=== PATIENT | female | born 1955 | race African-American/Black ===

== ENCOUNTER 2019-11-05 22:45 | Inpatient (IN) | payer MEDICARE, OTHER ==
[~2019-11-05] VITALS: Ht 160 cm; Wt 54.5 kg
--- NOTE | 2019-11-05 23:15 | NUR ---
SPOKE WITH PT'S NIECE, MOMO HIGH. PHONE NUMBER [phone].
--- NOTE | 2019-11-05 23:25 | NUR ---
SPOKE TO TIM GONZALES, HOMEOWNER OF [employer]. UNABLE TO GET FULL HX ON PT. WHEN THE FACILITY RECEIVED THE PATIENT "A COUPLE OF WEEKS AGO" PER Carlos GONZALES, SHE DID NOT RECEIVE ANY MEDICAL INFORMATION OF THE PATIENT.
[2019-11-05 23:43] LABS: BASOPHILS % 0.3 % (0.0-1.0); EOSINOPHILS # (AUTO) 0.1 (0.0-0.4); EOSINOPHILS % 2.2 % (0.0-6.0); HEMATOCRIT 31.6 % (34.2-44.1); HEMOGLOBIN 8.9 g/dL (12.0-16.0); LYMPHOCYTES # (AUTO) 1.1 (1.0-3.2); LYMPHOCYTES % 29.6 % (18.0-39.1); MEAN CORPUSCULAR HEMOGLOBIN 24.3 pg (28-32); MEAN CORPUSCULAR HGB CONC 28.2 g/dL (31-35); MEAN CORPUSCULAR VOLUME 86.1 fL (81-99); MONOCYTES # (AUTO) 0.4 (0.2-0.8); MONOCYTES % 11.5 % (4.4-11.3); NEUTROPHILS % 56.4 % (38.7-80.0); PLATELET COUNT 240 x10e3/uL (140-360); RED BLOOD COUNT 3.67 x10e6/uL (3.6-5.1); RED CELL DISTRIBUTION WIDTH 15.8 % (11.7-14.4)
[2019-11-05] MEDS ORDERED: HALOPERIDOL LACTATE 5 MG/ML VIAL IM ONE (23:45)
--- NOTE | 2019-11-05 23:45 | Emergency Department Note ---
History of Present Illnes History of Present Illness Chief Complaint: Neurological History of Present Illness This is a 64 year old female A&OX2 DISORIENTED TO TIME; PRESENTS TO THE ER VIA [facility] FROM [facility] C/O HALLUCINATIONS AND CP; PER FACILITY, PT HAD BEEN TRYING TO PULL OUT KATE CATHETER AND "ACTING DIFFERENT THAN USUAL"; HX OF DEMENTIA AND ALZHEIMER'S; PER DAUGHTER, PT HAD "SOME KIDNEY SX"; NURSE CATHY SPOKE WITH PT'S CAREGIVER AT [facility] IN AND REPORTED SHE HAS BEEN AWAITING A PSYCH EVALUATION WELL DUE TO HER DEMENTIA AND BEHAVIOR. 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 Any updates have been documented here. Past Medical History Recent Fever: No Clinical Suspicion of Infectio: No New/Unexplained Change in Ment: Yes Past Medical History: Hypertension, Chronic Kidney Disease Other Medical History: DEMENTIA ALZHEIMER'S DISEASE RT KIDNEY DISFUNCTION Past Surgical History: Other Surgery: "KIDNEY SX" UNABLE TO OBTAIN FULL HISTORY Social History Smoking Cessation: Never Smoker Alcohol Use: None Any Illegal Drug Use: No Other Last Tetanus: UNK Review of Systems ROS Narrative Unable to obtain ROS: Unable to obtain due to, altered mental status (PT HAS ALZ DEMENTIA) Review of Systems Review of other systems All other systems reviewed and negative. Physical Exam Related Data Allergies: Coded Allergies: No Known Allergies (Unverified , 11/05/19) Triage Vital Signs Vital Signs Date Time Temp Pulse Resp B/P (MAP) Pulse Ox O2 Delivery O2 Flow Rate FiO2 11/05/19 22:45 98.6 82 18 110/64 100 Vital signs reviewed: Yes Physical Exam CONSTITUTIONAL Constitutional: well-developed, well-nourished HENT HENT: normocephalic, atraumatic, oropharynx clear/moist, nose normal HENT L/R: left ext ear normal, right ext ear normal EYES Eyes: PERRL, conjunctivae normal NECK Neck: ROM normal PULMONARY Pulmonary: effort normal, breath sounds normal CARDIOVASCULAR Cardiovascular: regular rhythm, heart sounds normal, capillary refill normal, normal rate GASTROINTESTINAL Abdominal: soft, nontender, bowel sounds normal GENITOURINARY Genitourinary: other (PT HAS LEFT NEPHROSTOMY TUNE IN PLACE) SKIN Skin: warm, dry MUSCULOSKELETAL Musculoskeletal: ROM normal NEUROLOGICAL Neurological: alert, no gross motor or sensory deficits, other (DISORIENTED TO TIME AND SITUATION) PSYCHOLOGICAL Psychological: other (PT WITH DEMENITA, OCCAISIONALLY YELLS OUT) Results Laboratory Laboratory Laboratory Tests Test 11/06/19 03:08 11/05/19 23:21 Urine Color Yellow (YELLOW) Urine Clarity Cloudy (CLEAR) Urine pH 7 (5 - 7) Urine Specific Williams 1.020 (1.010-1.025) Urine Protein 2+ (NEGATIVE) Urine Glucose (UA) Negative (NEGATIVE) Urine Ketones Negative (NEGATIVE) Urine Blood 2+ (NEGATIVE) Urine Nitrite Positive (NEGATIVE) Urine Bilirubin Negative (NEGATIVE) Urine Urobilinogen 0.2 mg/dL (0.2 - 1) Urine Leukocyte Esterase 1+ (NEGATIVE) Urine RBC >50 /HPF (0-5) Urine WBC >50 /HPF (0-5) Urine Epithelial Cells Few /LPF (NONE) Urine Bacteria Many /HPF (NONE) Urine Opiates Screen Positive (NEGATIVE) Urine Methadone Screen Negative (NEGATIVE) Urine Barbiturates Screen Negative (NEGATIVE) Urine Phencyclidine Screen Negative (NEGATIVE) Urine Amphetamines Screen Negative (NEGATIVE) Urine Methamphetamines Screen Negative (NEGATIVE) Urine Benzodiazepines Screen Positive (NEGATIVE) Urine Cocaine Screen Negative (NEGATIVE) Urine Cannabinoids Screen Negative (NEGATIVE) White Blood Count 3.58 x10e3/uL (4.8-10.8) Red Blood Count 3.67 x10e6/uL (3.6-5.1) Hemoglobin 8.9 g/dL (12.0-16.0) Hematocrit 31.6 % (34.2-44.1) Mean Corpuscular Volume 86.1 fL (81-99) Mean Corpuscular Hemoglobin 24.3 pg (28-32) Mean Corpuscular Hemoglobin Concent 28.2 g/dL (31-35) Red Cell Distribution Width 15.8 % (11.7-14.4) Platelet Count 240 x10e3/uL (140-360) Neutrophils (%) (Auto) 56.4 % (38.7-80.0) Lymphocytes (%) (Auto) 29.6 % (18.0-39.1) Monocytes (%) (Auto) 11.5 % (4.4-11.3) Eosinophils (%) (Auto) 2.2 % (0.0-6.0) Basophils (%) (Auto) 0.3 % (0.0-1.0) Neutrophils # (Auto) 2.0 (2.1-6.9) Lymphocytes # (Auto) 1.1 (1.0-3.2) Monocytes # (Auto) 0.4 (0.2-0.8) Eosinophils # (Auto) 0.1 (0.0-0.4) Basophils # (Auto) 0.0 (0.0-0.1) Absolute Immature Granulocyte (auto 0 x10e3/uL (0-0.1) Sodium Level 145 mmol/L (136-145) Potassium Level 4.1 mmol/L (3.5-5.1) Chloride Level 113 mmol/L (98-107) Carbon Dioxide Level 21 mmol/L (22-29) Anion Gap 15.1 mmol/L (8-16) Blood Urea Nitrogen 59 mg/dL (7-26) Creatinine 3.25 mg/dL (0.57-1.11) Estimat Glomerular Filtration Rate 14 ML/MIN (60-) BUN/Creatinine Ratio 18 (6-25) Glucose Level 104 mg/dL (74-118) Lactic Acid Level 0.8 mmol/L (0.5-2.0) Calcium Level 10.0 mg/dL (8.4-10.2) Total Bilirubin 0.2 mg/dL (0.2-1.2) Aspartate Amino Transf (AST/SGOT) 30 IU/L (5-34) Alanine Aminotransferase (ALT/SGPT) 7 IU/L (0-55) Alkaline Phosphatase 39 IU/L (40-150) Ammonia 44 UG/DL (31-123) Creatine Kinase 433 IU/L (29-168) Creatine Kinase MB 4.00 ng/mL (0-5.0) Troponin I 0.008 ng/mL (0-0.300) Total Protein 7.9 g/dL (6.5-8.1) Albumin 4.0 g/dL (3.5-5.0) Globulin 3.9 g/dL (2.3-3.5) Albumin/Globulin Ratio 1.0 (0.8-2.0) Ethyl Alcohol Level < 10.0 mg/dL (0.0-10.0) Laboratory Tests Test 11/05/19 23:21 Lab results reviewed: Yes Imaging Imaging results reviewed: Yes Impressions Procedure: CT/CT BRAIN WO Exam Date: 11/05/19 Exam Time: 5 REPORT STATUS: Signed EXAMINATION: Head CT without contrast. HISTORY:Altered mental status, hallucination. COMPARISON:None. TECHNIQUE: Multidetector axial images were obtained from the foramen magnum to the vertex without contrast. The images were reconstructed using brain and bone algorithms. Thin section brain images were reformatted into coronal and sagittal planes. Dose modulation, iterative reconstruction, and/or weight based adjustment of the mA/kV was utilized to reduce the radiation dose to as low as reasonably achievable. Intravenous contrast: None IMAGE QUALITY: Acceptable. FINDINGS: Skull/scalp: No lytic or blastic. lesions. No surgical changes. Parenchyma: Nonspecific few, scattered supratentorial white matter hypodensity are likely related to small vessel ischemic changes. No acute hemorrhage, mass or acute major vascular territorial infarct. Arteries: No density suggestive of thrombosis. Atherosclerotic calcification in bilateral carotid siphon. Dural sinuses: No abnormal density suggestive of thrombosis. Ventricles: No hydrocephalus or displacement. Extra-axial spaces: No abnormal density. Brain volume: Normal for age. Craniocervical junction: No mass, Chiari malformation, or basilar invagination. Sella: No mass. Paranasal/mastoid sinuses: Imaged portions unremarkable. IMPRESSION: No acute intracranial abnormality. Mild supratentorial white matter microvascular ischemic changes. Signed by: Dr. Tamy Wood M.D. on 11/06/2019 12:45 AM Dictated By: TAMY WOOD MD Transcribed By: TROY on 11/[birth year]/1944 COPY TO: MISTY LUJAN MD~ Procedure: DX/CHEST SINGLE (PORTABLE) Exam Date: 11/05/19 Exam Time: 2354 REPORT STATUS: Signed EXAMINATION: CHEST SINGLE (PORTABLE) COMPARISON: None INDICATION: ^CONFUSED ^Y DISCUSSION: Frontal view of the chest obtained at 0021 hours. HEART AND MEDIASTINUM: The cardiomediastinal silhouette is unremarkable. LINES: None. LUNGS/PLEURA: The lungs are well-inflated. Mild eventration of the right diaphragm. No pneumonia or pulmonary edema. No pleural effusion or pneumothorax. BONES AND SOFT TISSUES: No focal osseous lesion. Surgical clips in the right upper quadrant. The soft tissues are normal. IMPRESSION: No acute cardiopulmonary disease. Signed by: Dr. Jadon Means MD on 11/06/2019 12:39 AM Dictated By: JADON MEANS MD Transcribed By: TROY on 11/06/1938 Critical Care Time Subsequent provider I assumed direction of critical care for this patient from another provider of my specialty. Assessment & Plan Assessment & Plan Final Impression: (1) URINARY TRACT INFECTION, SITE NOT SPECIFIED (2) DEMENTIA IN OTH DISEASES CLASSD ELSWHR W BEHAVIORAL DISTURB (3) ALZHEIMER'S DISEASE, UNSPECIFIED Assessment & Plan PT WITH H/O ALZ DEMENTIA WITH REPORTED CHEST PAIN AT 7 AM THIS MORNING AND REPORTED MORE CONFUSED THAN NORMAL CBC, CMP, UA, CARDIAC ENZYMES, CXR, CT BRAIN ORDERED TO EVAL FOR MYOCARDIAL INFARCTION, ELECTROLYTE ABNORMALITY, UTI, PNEUMONIA, INTRACRANIAL ABNORMALITY 2348 PT NOW COMBATIVE, HALOPERIDOL 2 MG IM ORDERED PT HAS UTI LEFT KIDNEY, UA RESULTS ARE FROM LEFT NEPHROSTOMY PT STARTED ON CEFEPIME I SPOKE WITH DR JONES, ADMIT TO INPATIENT Depart Disposition: ADMITTED Last Vital Signs Date Time Temp Pulse Resp B/P (MAP) Pulse Ox O2 Delivery O2 Flow Rate FiO2 11/05/19 22:45 98.6 82 18 110/64 100 MISTY LUJAN MD Nov 05, 2019 23:45
--- NOTE | 2019-11-05 23:45 | NUR ---
Unable to perform EKG at this time. Patient is yelling and refusing EKG at this time. Patient digging her nails into staff. notified.
[2019-11-06] VITALS (7 sets, daily range): BP systolic 129–144; BP diastolic 70–80
[2019-11-06] LABS: ANION GAP 15.1 mmol/L (8-16); CREATININE, SERUM 3.25 mg/dL (0.57-1.11); POTASSIUM 4.1 mmol/L (3.5-5.1)
--- NOTE | 2019-11-06 00:42 | Diagnostic Imaging Report ---
EXAMINATION: CHEST SINGLE (PORTABLE) COMPARISON: None INDICATION: ^CONFUSED ^Y DISCUSSION: Frontal view of the chest obtained at 0021 hours. HEART AND MEDIASTINUM: The cardiomediastinal silhouette is unremarkable. LINES: None. LUNGS/PLEURA: The lungs are well-inflated. Mild eventration of the right diaphragm. No pneumonia or pulmonary edema. No pleural effusion or pneumothorax. BONES AND SOFT TISSUES: No focal osseous lesion. Surgical clips in the right upper quadrant. The soft tissues are normal. IMPRESSION: No acute cardiopulmonary disease. Signed by: Dr. Bryant Means MD on 11/06/2019 12:39 AM
--- NOTE | 2019-11-06 00:49 | Diagnostic Imaging Report ---
EXAMINATION: Head CT without contrast. HISTORY:Altered mental status, hallucination. COMPARISON:None. TECHNIQUE: Multidetector axial images were obtained from the foramen magnum to the vertex without contrast. The images were reconstructed using brain and bone algorithms. Thin section brain images were reformatted into coronal and sagittal planes. Dose modulation, iterative reconstruction, and/or weight based adjustment of the mA/kV was utilized to reduce the radiation dose to as low as reasonably achievable. Intravenous contrast: None IMAGE QUALITY: Acceptable. FINDINGS: Skull/scalp: No lytic or blastic. lesions. No surgical changes. Parenchyma: Nonspecific few, scattered supratentorial white matter hypodensity are likely related to small vessel ischemic changes. No acute hemorrhage, mass or acute major vascular territorial infarct. Arteries: No density suggestive of thrombosis. Atherosclerotic calcification in bilateral carotid siphon. Dural sinuses: No abnormal density suggestive of thrombosis. Ventricles: No hydrocephalus or displacement. Extra-axial spaces: No abnormal density. Brain volume: Normal for age. Craniocervical junction: No mass, Chiari malformation, or basilar invagination. Sella: No mass. Paranasal/mastoid sinuses: Imaged portions unremarkable. IMPRESSION: No acute intracranial abnormality. Mild supratentorial white matter microvascular ischemic changes. Signed by: Dr. Tamy Wood M.D. on 11/06/2019 12:45 AM
[2019-11-06 03:26] LABS: BENZODIAZEPINES SCREEN,URINE POSITIVE (NEGATIVE); CLARITY,URINE CLOUDY (CLEAR); COLOR,URINE YELLOW (YELLOW); KETONES,URINE NEGATIVE (NEGATIVE); LEUKOCYTE ESTERASE ,URINE 1+ (NEGATIVE); NITRITE,URINE POSITIVE (NEGATIVE); PROTEIN,URINE DIPSTICK 2+ (NEGATIVE)
[2019-11-06 03:27] LABS: AMPHETAMINES SCREEN,URINE NEGATIVE (NEGATIVE); BILIRUBIN,URINE NEGATIVE (NEGATIVE); PHENCYCLIDINE SCREEN,URINE NEGATIVE (NEGATIVE); URINE UROBILINOGEN 0.2 mg/dL (0.2 - 1)
[2019-11-06 03:33] LABS: BACTERIA,URINE MANY /HPF; EPITHELIAL CELLS,URINE FEW /LPF; RBC,URINE >50 /HPF (0-5); WBC,URINE (MAN) >50 /HPF (0-5)
[2019-11-06] MEDS ORDERED: ONDANSETRON HCL INJ 2MG/ML 2ML 2 MG/ML VIAL IV PRN (04:00)
[2019-11-06] MEDS: CEFEPIME 2 GM/NS 0.9% 100 ML 100 ML IV SCH ×2 (05:09→06:00)
--- NOTE | 2019-11-06 09:05 | NUR ---
RECEIVED PATIENT FROM ER. PATIENT AAOX1, CONFUSED. 1:1 SITTER AT BEDSIDE. COMPLETED ADMISSION HISTORY BY CALLING PATIENT'S COUSIN/POA. IV LINE TO RIGHT ANTECUBITAL PATENT. CALL LIGHT WITHIN REACH. BED IN THE LOWEST POSITION. BED ALARM ON.
[2019-11-06] MEDS ORDERED: LORAZEPAM0.5 GM PO (09:50)
[2019-11-06] MEDS ORDERED: CRESTOR10 MG PO (09:50)
[2019-11-06] MEDS ORDERED: TYLENOL WITH C1 EACH PO (09:50)
[2019-11-06] MEDS ORDERED: SEROQUEL25 MG PO (09:50)
[2019-11-06] MEDS ORDERED: TEMAZEPAM15 MG PO (09:50)
[2019-11-06] MEDS: SODIUM CHLORIDE 0.9% 1000ML 1,000 ML IV SCH ×2 (10:07→19:30)
[2019-11-06] MEDS: CEFTRIAXONE SOD 1 GM/NS 50 ML 50 ML IV SCH (10:07)
[2019-11-06] MEDS ORDERED: ACETAMINOPHEN/CODEINE 300MG - 30MG TAB PO PRN (12:30)
[2019-11-06] MEDS ORDERED: ACETAMINOPHEN 325 MG TAB PO PRN (12:30)
[2019-11-06] MEDS ORDERED: HYDRALAZINE HCL 20 MG/ML VIAL IV PRN (12:30)
[2019-11-06] MEDS ORDERED: LORAZEPAM 0.5 MG TAB PO PRN (12:30)
--- NOTE | 2019-11-06 13:27 | Diagnostic Imaging Report ---
EXAM: Renal Ultrasound INDICATION: Acute kidney injury COMPARISON: None TECHNIQUE: Transverse and longitudinal images of the kidneys and bladder were obtained. FINDINGS: Right Kidney: Length: 9.1 cm Appearance: Normal echogenicity. Collecting system: No hydronephrosis Stones: None Cyst/Mass: None Left Kidney: Length: 9.7 cm Appearance: Normal echogenicity. Collecting system: No hydronephrosis Stones: Multiple 3 mm punctate echogenic foci could represent nonobstructive renal calculi. Cyst/Mass: None Bladder: Not visualized due to patient positioning and inability to fully cooperate with exam. IMPRESSION: 3 mm nonobstructive left renal calculi. No hydronephrosis. Signed by: Jerry Berkowitz MD on 11/06/2019 1:23 PM
[2019-11-06] MEDS: FAMOTIDINE 20 MG/2 ML VIAL IV SCH (16:00)
[2019-11-06] MEDS: QUETIAPINE FUMARATE 25 MG TAB PO SCH (16:00)
--- NOTE | 2019-11-06 19:00 | NUR ---
REPORT GIVEN TO ONCOMING NURSE. PATIENT IS RESTING IN BED. NO ACUTE DISTRESS NOTED. CALL LIGHT WITHIN REACH. BED ALARM ON.
[2019-11-06] MEDS: TEMAZEPAM 15 MG CAP PO SCH (19:58)
[2019-11-06] MEDS: SIMVASTATIN 20 MG TAB PO SCH (19:58)
--- NOTE | 2019-11-06 20:03 | NUR ---
PT IS CONFUSED AND GETTING OUT OF THE BED .RESPIRATIONS ARE EVEN AND UNLABORED . RT AC NS AT 100C ML/HR IS RUNNING .PT HAS NEPHROSTOMY BAG .CALL LIGHT WITH IN REACH .CONTINUE TO MONITOR
[2019-11-07] VITALS (8 sets, daily range): BP systolic 108–150; BP diastolic 63–97
[2019-11-07] MEDS: LORAZEPAM INJ 2 MG/ML VIAL IV PRN ×2 (03:32→21:30)
--- NOTE | 2019-11-07 03:52 | Consultation ---
DATE OF CONSULTATION: 11/06/2019 Nephrology Consultation REASON FOR CONSULTATION: Acute kidney injury versus CKD. HISTORY OF PRESENT ILLNESS: This is a 64-year-old female. She lives in a facility unknown where. She has severe dementia, unable to obtain any information from this patient and information is being obtained from the ED note and primary team, was sent then by this facility due to underlying hallucinations and complaints of chest pain. The patient has a history of dementia with Alzheimer's according to the daughter and the records. Apparently, she has a nephrostomy tube a couple weeks ago from [facility], but unknown etiology. Currently, there is no family at bedside. The patient was evaluated with the nursing staff. She got a renal ultrasound that was ordered by me for further evaluation and management. REVIEW OF SYSTEMS: Pertinent positive, she has a left-sided nephrostomy tube, reports of chest pain and questionable hallucinations. Unable to obtain the rest of 14-point review of systems as the patient is currently at baseline dementia. PHYSICAL EXAMINATION: VITAL SIGNS: Temperature is 98, pulse 86, respirations is 18, blood pressure 137/70, pulse ox 100% on room air. GENERAL: She is demented at baseline. PULMONARY: Clear to auscultation bilaterally. No wheezing, rales, or rhonchi. No crackles appreciated. CARDIOVASCULAR: Positive S1, S2. No murmurs, rubs, or gallops appreciated. ABDOMEN: Soft, nontender, nontender to palpation. Bowel sounds present. MUSCULOSKELETAL: Unable to assess. NEUROLOGIC: Unable to assess. SKIN: Intact, warm to touch. Good cap refill. PSYCHIATRIC: Baseline dementia. EXTREMITIES: No edema. Good range of motion throughout. LABORATORY DATA: White count 3.5, hemoglobin 8.9, hematocrit 31.6, platelets of 240. Chemistry; sodium 145, potassium 4.1, chloride 113, bicarb 21, anion gap of 15, BUN is 59, creatinine 3.2, glucose is 104. Lactic acid is 0.8. LFTs within normal range. Alkaline phosphatase is 39. Ammonia level 44. CK 433. Albumin 4. Troponins were negative. Urinalysis concerning for underlying UTI. Urine drug screen positive for benzos and opioids. Alcohol level was negative. Coronavirus PCR is pending. Microbiology; blood and urine cultures are pending. IMAGING STUDIES: CT brain, no acute intracranial abnormalities. Chest x-ray, no acute cardiopulmonary disease. Renal ultrasound showed a right kidney 9.1 cm with no hydronephrosis, left kidney 9.7 cm, no hydronephrosis. There is a 3 mm punctate echogenic foci represent nonobstructive renal calculi. IMPRESSION: 1. Acute kidney injury versus chronic kidney disease with a left-sided nephrostomy tube. 2. 3 mm nephrolithiasis. 3. Electrolyte abnormalities. 4. Baseline dementia. PLAN: At this time, from a renal standpoint, a renal ultrasound has been ordered with results above. There is no need for any urine electrolytes as the patient has a nephrostomy tube, which will give us false reading. The etiology of the chronic disease could be all prerenal azotemia. There are no repeat labs today. I will go ahead and get labs for tomorrow and see if there is any correction in terms of her creatinine. The patient is slightly acidotic, bicarb of 21, we will monitor closely. Renal ultrasound has been performed. If the patient continues to get worsening renal function, she may need hemodialysis. I do not have any creatinine in the past for me to compare. We may need to request records from [facility] recently. MD ALEXANDER Joyner/LIBRADO /[id number]
[2019-11-07] MEDS: SODIUM CHLORIDE 0.9% 1000ML 1,000 ML IV SCH (06:30)
[2019-11-07 06:52] LABS: BASOPHILS % 0.2 % (0.0-1.0); EOSINOPHILS # (AUTO) 0.1 (0.0-0.4); EOSINOPHILS % 1.3 % (0.0-6.0); HEMATOCRIT 30.3 % (34.2-44.1); HEMOGLOBIN 8.7 g/dL (12.0-16.0); LYMPHOCYTES # (AUTO) 0.8 (1.0-3.2); LYMPHOCYTES % 18.8 % (18.0-39.1); MEAN CORPUSCULAR HEMOGLOBIN 24.7 pg (28-32); MEAN CORPUSCULAR HGB CONC 28.7 g/dL (31-35); MEAN CORPUSCULAR VOLUME 86.1 fL (81-99); MONOCYTES # (AUTO) 0.4 (0.2-0.8); MONOCYTES % 7.8 % (4.4-11.3); NEUTROPHILS # (AUTO) 3.2 (2.1-6.9); NEUTROPHILS % 71.7 % (38.7-80.0); PLATELET COUNT 216 x10e3/uL (140-360); RED BLOOD COUNT 3.52 x10e6/uL (3.6-5.1); RED CELL DISTRIBUTION WIDTH 15.9 % (11.7-14.4)
--- NOTE | 2019-11-07 07:00 | NUR ---
Received bedside shift report from off going nurse. Patient is resting in bed. No acute distress noted. Call light within reach. Bed in the lowest position. Bed alarm on.
--- NOTE | 2019-11-07 07:16 | NUR ---
PT RESTED DURING THE NIGHT AND DENIES PAIN .CALL LIGHT WITH IN REACH .CONTINUE TO MONITOR .BEDSIDE REPORT GIVEN TO THE ONCOMING NURSE
[2019-11-07 07:22] LABS: CREATINE KINASE MB 2.7 ng/mL (0-5.0)
[2019-11-07 07:41] LABS: ALBUMIN 3.5 g/dL (3.5-5.0); ALBUMIN/GLOBULIN RATIO 0.9 (0.8-2.0); ANION GAP 12.2 mmol/L (8-16); CALCIUM 9.4 mg/dL (8.4-10.2); CREATININE, SERUM 2.12 mg/dL (0.57-1.11); POTASSIUM 4.2 mmol/L (3.5-5.1)
[2019-11-07 08:06] LABS: CHOL/HDL RATIO 3.7 (3.0-3.6); MAGNESIUM 2.2 MG/DL (1.3-2.1)
[2019-11-07 08:25] LABS: THYROID STIMULATING HORMONE 0.09 uIU/mL (0.350-4.940)
[2019-11-07] MEDS: QUETIAPINE FUMARATE 25 MG TAB PO SCH ×2 (09:13→16:05)
[2019-11-07] MEDS: FAMOTIDINE 20 MG/2 ML VIAL IV SCH ×2 (09:13→16:05)
[2019-11-07] MEDS: CEFTRIAXONE SOD 1 GM/NS 50 ML 50 ML IV SCH (09:30)
[2019-11-07 11:14] LABS: ANISOCYTOSIS SLIGHT; PLATELET ESTIMATE ADEQUATE; PLATELET MORPHOLOGY COMMENT NORMAL; RBC MORPHOLOGY COMMENT NORMAL
[2019-11-07] MEDS ORDERED: HALOPERIDOL LACTATE 5 MG/ML VIAL IM ONE (18:00)
--- NOTE | 2019-11-07 18:00 | NUR ---
PATIENT COMBATIVE. ABIGAIL HEALY NOTIFIED NEW ORDER FOR HALDOL 2MG IM ONCE RECEIVED.
--- NOTE | 2019-11-07 18:40 | NUR ---
PATIENT PULLED IV LINE. ATTEMPTED TO START IV X2 UNSUCCESSFUL. NOTIFIED NIGHT CHARGE NURSE.
--- NOTE | 2019-11-07 18:50 | NUR ---
BEDSIDE SHIFT REPORT GIVEN TO ONCOMING NURSE. PATIENT IS RESTING IN BED. NO ACUTE DISTRESS NOTED. NIGHT NURSE NOTIFIED THAT UNABLE TO OBTAIN IV ACCESS. CALL LIGHT WITHIN REACH. BED IN THE LOWEST POSITION.
--- NOTE | 2019-11-07 19:55 | NUR ---
RECEIVED PT IN BED CONFUSED ,GETTING OUT OF THE BED ,NO IV LINE CALL LIGHT WITH IN REACH ,BED ALARM ON .CONTINUE TO MONITOR
[2019-11-07] MEDS: SIMVASTATIN 20 MG TAB PO SCH (21:18)
[2019-11-07] MEDS: TEMAZEPAM 15 MG CAP PO SCH (21:18)
[2019-11-08 00:39] VITALS: BP 146/88
--- NOTE | 2019-11-08 00:51 | Progress Note ---
DATE: 11/07/2019 Nephrology Progress Note SUBJECTIVE: The patient was evaluated at approximately 1:20 p.m. this afternoon. She is at baseline. She has baseline dementia. Creatinine improved. No overnight events. LABORATORY DATA: CBC was stable. Chemistry; sodium 146, potassium 4.2, chloride 120, bicarb 18, anion gap of 12. BUN is 48, creatinine is 2.12 down trending from 3.25. Rest of the electrolytes are stable. Magnesium 2.2. MICROBIOLOGY: Urine culture, gram-negative bacillus. Blood cultures, no growth. IMAGING STUDIES: Renal ultrasound was reviewed. PHYSICAL EXAMINATION: VITAL SIGNS: She is afebrile. Normotensive respiratory rate is good. GENERAL: She is demented at baseline. PULMONARY: Clear to auscultation bilaterally. No wheezing, rales, or rhonchi. No crackles appreciated. CARDIOVASCULAR: Positive S1, S2. No murmurs, rubs, or gallops appreciated. ABDOMEN: Soft, nondistended, nontender to palpation. Bowel sounds present. MUSCULOSKELETAL: Strength is 5/5 throughout. SKIN: Intact. Warm to touch. Good cap refill. PSYCHIATRIC: Baseline dementia. EXTREMITIES: No edema. Good range of motion throughout. IMPRESSION: 1. Acute kidney injury with possible underlying chronic kidney disease with left-sided nephrostomy tube. 2. 3 mm nephrolithiasis. 3. Electrolyte abnormalities. 4. Baseline dementia. 5. Urinary tract infection. PLAN: At this time from a renal standpoint, renal ultrasound has been reviewed. Electrolytes are stable. Creatinine is down trending. Continue with IV fluids. Pending several lab tests. On IV antibiotics for UTI. Monitor closely. MD ALEXANDER Joyner/MODL /[id number]
[2019-11-08 04:00] VITALS: BP 149/90
[2019-11-08] MEDS: LORAZEPAM INJ 2 MG/ML VIAL IV PRN ×2 (05:00→10:45)
--- NOTE | 2019-11-08 05:30 | NUR ---
PT DID NOT SLEEP DURING THE NIGHT .GIVEN ATIVAN HELP HER TO CALM DOWN LITTLE .CALL LIGHT WITH IN REACH CONTINUE TO MONITOR
[2019-11-08 07:03] LABS: BASOPHILS % 0.2 % (0.0-1.0); EOSINOPHILS # (AUTO) 0.1 (0.0-0.4); HEMATOCRIT 34.7 % (34.2-44.1); HEMOGLOBIN 9.9 g/dL (12.0-16.0); LYMPHOCYTES # (AUTO) 0.8 (1.0-3.2); LYMPHOCYTES % 18.6 % (18.0-39.1); MEAN CORPUSCULAR HEMOGLOBIN 25.1 pg (28-32); MEAN CORPUSCULAR HGB CONC 28.5 g/dL (31-35); MEAN CORPUSCULAR VOLUME 88.1 fL (81-99); MONOCYTES # (AUTO) 0.4 (0.2-0.8); MONOCYTES % 9.7 % (4.4-11.3); NEUTROPHILS # (AUTO) 2.8 (2.1-6.9); PLATELET COUNT 220 x10e3/uL (140-360); RED BLOOD COUNT 3.94 x10e6/uL (3.6-5.1); RED CELL DISTRIBUTION WIDTH 15.9 % (11.7-14.4)
--- NOTE | 2019-11-08 07:11 | NUR ---
BEDSIDE REPORT GIVEN TO THE ONCOMING NURSE
[2019-11-08 07:32] LABS: ALBUMIN 3.8 g/dL (3.5-5.0); ALBUMIN/GLOBULIN RATIO 0.9 (0.8-2.0); ANION GAP 10.9 mmol/L (8-16); CALCIUM 9.9 mg/dL (8.4-10.2); CREATININE, SERUM 1.91 mg/dL (0.57-1.11); MAGNESIUM 2.2 MG/DL (1.3-2.1); POTASSIUM 3.9 mmol/L (3.5-5.1)
[2019-11-08 07:40] VITALS: BP 118/86
[2019-11-08 08:43] VITALS: BP 118/86
[2019-11-08] MEDS: QUETIAPINE FUMARATE 25 MG TAB PO SCH ×2 (09:00→10:34)
[2019-11-08] MEDS: CEFTRIAXONE SOD 1 GM/NS 50 ML 50 ML IV SCH (09:54)
[2019-11-08] MEDS: FAMOTIDINE 20 MG/2 ML VIAL IV SCH (09:54)
[2019-11-08 12:09] VITALS: BP 143/79
--- NOTE | 2019-11-08 12:39 | NUR ---
The pt. is [facility] asleep but in stable condition.
[2019-11-08] MEDS ORDERED: CEFDINIR300 MG PO (13:40)
--- NOTE | 2019-11-08 22:55 | Progress Note ---
DATE: 11/08/2019 Nephrology Progress Note SUBJECTIVE: The patient was seen just prior to being discharged today. She is doing well, being transferred today to a [facility] facility. PHYSICAL EXAMINATION: VITAL SIGNS: Temperature 98.2, pulse 92, respiratory rate is 19, blood pressure 143/79, and pulse ox 97% on room air. GENERAL: Not in acute distress. She is at baseline confused from dementia. PULMONARY: Clear to auscultation bilaterally. No wheezing, no rales, no rhonchi, no crackles appreciated. CARDIOVASCULAR: Positive S1 and S2. No murmurs, rubs, or gallops appreciated. ABDOMEN: Soft, nondistended, and nontender to palpation. Bowel sounds present. MUSCULOSKELETAL: Strength is 5/5 throughout. No evidence of any muscle deficits on examination. No weakness appreciated. NEUROLOGIC: She has a baseline dementia. SKIN: Intact. Warm to touch. Good cap refill. LABORATORY DATA: Show white count 4, hemoglobin 9.9, hematocrit is 34.7, and platelets of 220. Chemistry; sodium 143, potassium 3.9, chloride 116, bicarb 29, anion gap of 10, BUN is 36, and creatinine is 1.91. MICROBIOLOGY: E. coli noted. Blood cultures no growth to date. IMPRESSION: 1. Acute kidney injury with possible underlying chronic kidney disease with left-sided nephrostomy tube. 2. A 3 mm nephrolithiasis. 3. Electrolyte abnormalities. 4. Baseline dementia. 5. Urinary tract infection Escherichia coli. PLAN: At this time, she will be discharged today with oral antibiotics. Electrolytes are stable. Creatinine was downtrending. Outpatient followup with Nephrology. MD ALEXANDER Joyner/MODL /[id number]
--- NOTE | 2019-11-09 01:27 | Discharge Summary ---
ADMISSION DIAGNOSES: 1. Urinary tract infection, present on admission. 2. Acute metabolic encephalopathy, secondary to urinary tract infection. 3. Acute kidney injury versus chronic kidney disease. 4. Rhabdomyolysis. 5. Dementia. 6. Hyperlipidemia. DISCHARGE DIAGNOSES: 1. Urinary tract infection, present on admission. 2. Acute metabolic encephalopathy, secondary to urinary tract infection. 3. Acute kidney injury versus chronic kidney disease. 4. Rhabdomyolysis. 5. Dementia. 6. Hyperlipidemia. 7. Escherichia coli urinary tract infection, present on admission. 8. History of hyperlipidemia, dementia, chronic kidney disease 4. SURGICAL HISTORY: and kidney surgery. HOSPITAL COURSE: A 64-year-old female, admits with complaints of increased AMS per "[facility] facility. Limited HPI and history due to dementia and AMS. No paperwork was sent with the patient from the facility. On admission, CT of the brain was done, which showed no acute abnormality. Chest x-ray showed no acute abnormalities due to unknown kidney function. Renal ultrasound was done, which showed a 3 mm nonobstructive left renal calculi. No hydronephrosis. After getting IV fluids, the renal function improved. COVID test was negative. Urine culture came back positive for E. coli. The patient was placed on Rocephin on admission and will need to discharge to the facility with more antibiotics. At the time of discharge, the patient is calm, not pulling at any lines and ready for discharge back to the facility. However, the patient was discharged without a discharge order from the attending back to the facility, so the correct medications did not go with the patient. The nurse will call the facility to arrange correct antibiotic. Vital signs stable. The patient is afebrile. Dictated by Charline Thomas NP MD DIANNE Sheehan/MODL /[id number]
== END 2019-11-08 12:26 | disposition home or self-care (01) | DRG 689 ==
LOC: ER 22:45 → ERHOLD 11-06 03:55 → MED/SURG3 11-06 08:32
PROVIDERS: ADMIT Internal Medicine; ATTEND Internal Medicine
DX: N39.0 Urinary tract infection, site not specified (principal); G93.41 Metabolic encephalopathy; N17.9 Acute kidney failure, unspecified; M62.82 Rhabdomyolysis; N18.4 Chronic kidney disease, stage 4 (severe); F03.90 Unspecified dementia, unspecified severity, without behavioral disturbance, psychotic disturbance, mood disturbance, and anxiety; B96.20 Unspecified Escherichia coli [E. coli] as the cause of diseases classified elsewhere; I12.9 Hypertensive chronic kidney disease with stage 1 through stage 4 chronic kidney disease, or unspecified chronic kidney disease; E78.5 Hyperlipidemia, unspecified; N20.0 Calculus of kidney; E87.8 Other disorders of electrolyte and fluid balance, not elsewhere classified
CPT/HCPCS: 36415; 70450; 71045; 76770; 80053; 80061; 80307; 80320; 81001; 82140; 82550; 82553; 82948; 83036; 83605; 83735; 83970; 84100; 84443; 84484; 85025; 87040; 87086; 87186; 87635; 93005; 99284; J0696; J1630; J2060; J7030